=== PATIENT | female | born 1950 | race Caucasian/White ===

== ENCOUNTER 2017-06-28 14:00 | Inpatient (IN) | payer MEDICARE, SELFPAY | END 2017-06-29 17:22 | disposition home or self-care (01) | DRG 641 | PROVIDERS: Admitting Provider Family Medicine; Emergency Provider Emergency Medicine; PCP Family Medicine; Visit Provider Family Medicine | DX: E87.6 Hypokalemia (principal); N39.0 Urinary tract infection, site not specified; Z87.891 Personal history of nicotine dependence; G35 Multiple sclerosis; E03.9 Hypothyroidism, unspecified; M81.0 Age-related osteoporosis without current pathological fracture; R60.9 Edema, unspecified; R32 Unspecified urinary incontinence; W18.30XA Fall on same level, unspecified, initial encounter | CPT/HCPCS: 36000; 36415; 71010; 71045; 80048; 80053; 81001; 81003; 83605; 83690; 83735; 85025; 85610; 85730; 87040; 87077; 87086; 87186; 93005; 93010; 96361; 96365; 96366; 96368; 97161; 99058; 99285; G0378; J1650; J3480 ==

== ENCOUNTER → 2018-07-05 13:46 | Outpatient (CLI) | payer MEDICARE, SELFPAY ==
[2018-07-05 14:52] LABS: Blood Urea Nitrogen 24 mg/dL (7-17); Calcium 8.9 mg/dL (8.4-10.2); Carbon Dioxide 31 mmol/L (22-32); Chloride 100 mmol/L (98-107); Estimated Glomerular Filt Rate > 60.0 mL/min (>60); Glucose 102 mg/dL (80-110); HEMOLYSIS < 15 (0-50); Potassium 3.8 mmol/L (3.4-5.1); Sodium 139 mmol/L (137-145)
[2018-07-05 15:16] LABS: Vitamin D 25 Hydroxy (D3) 53.7 ng/mL (30.0-100.0)
[2018-07-05 15:28] LABS: Thyroid Stimulating Hormone 7.41 uIU/mL (0.47-4.68)
== END ==
PROVIDERS: PCP Family Medicine; Visit Provider Family Medicine
DX: E03.9 Hypothyroidism, unspecified (principal); E87.6 Hypokalemia; G35 Multiple sclerosis; M81.0 Age-related osteoporosis without current pathological fracture
CPT/HCPCS: 36415; 80048; 82306; 84443

== ENCOUNTER → 2018-09-27 10:50 | Outpatient (CLI) | payer MEDICARE, SELFPAY ==
[2018-09-27 12:31] LABS: Alanine Aminotransferase 17 IU/L (9-52); Albumin 3.5 g/dL (3.5-5.0); Albumin Globulin Ratio 1.3 (1.0-2.8); Alkaline Phosphatase 77 U/L (38-126); Aspartate Aminotransferase 22 IU/L (14-36); BUN Creatinine Ratio 21.4 (6-22); Bilirubin Total 0.3 mg/dL (0.2-1.3); Blood Urea Nitrogen 15 mg/dL (7-17); Calcium 8.8 mg/dL (8.4-10.2); Carbon Dioxide 33 mmol/L (22-32); Chloride 102 mmol/L (98-107); Cholesterol 189 mg/dL (140-199); Estimated Glomerular Filt Rate > 60.0 mL/min (>60); Globulin 2.6 g/dL (1.7-4.1); Glucose 83 mg/dL (80-110); HDL Cholesterol 64 mg/dL (40-60); HEMOLYSIS < 15 (0-50); LDL Cholesterol Calculated 114 mg/dL (<100); Potassium 3.5 mmol/L (3.4-5.1); Sodium 141 mmol/L (137-145); Total Protein 6.1 g/dL (6.3-8.2); Triglycerides 57 mg/dL (35-150)
[2018-09-27 12:57] LABS: TSH w/ Reflex to FT4 2.06 uIU/mL (0.47-4.68)
== END ==
PROVIDERS: Family Medicine; PCP Family Medicine; Visit Provider Family Medicine
DX: E03.9 Hypothyroidism, unspecified (principal); Z85.820 Personal history of malignant melanoma of skin; E78.00 Pure hypercholesterolemia, unspecified
CPT/HCPCS: 80053; 80061; 84443

== ENCOUNTER → 2019-01-21 13:26 | Outpatient (CLI) | payer MEDICARE, SELFPAY ==
--- NOTE | 2019-01-21 13:29 | DI.RAD.S_ITS ---
PROCEDURE: XR MANDIBLE MIN 4V INDICATIONS: jaw pain, on bisphosphonate TECHNIQUE: 3 views of the mandible were acquired. COMPARISON: None. FINDINGS: Bones: No fractures or dislocations. No suspicious bony lesions. Temporomandibular Multiple dental implants. Soft tissues: Visualized sinuses appear clear. No suspicious soft tissue densities. IMPRESSION: No acute osseous abnormalities. If clinical symptoms persist or clinical suspicion for pathology is high, CT is suggested for further evaluation. Dictated by: Sathish Alvarez M.D. on 01/21/2019 at 17:20 Approved by: Sathish Alvarez M.D. on 01/21/2019 at 17:25
== END ==
PROVIDERS: PCP Family Medicine; Visit Provider Family Medicine
DX: R68.84 Jaw pain (principal)
CPT/HCPCS: 70110

== ENCOUNTER → 2019-02-22 12:52 | Outpatient (CLI) | payer MEDICARE, SELFPAY ==
--- NOTE | 2019-02-22 12:53 | DI.MG.S_ITS ---
BILATERAL DIGITAL SCREENING MAMMOGRAM 3D/2D WITH CAD: 02/22/2019 CLINICAL: Routine screening. Family history of breast cancer. Comparison is made to exams dated: 01/31/2017 mammogram - [facility], 08/22/2014 mammogram, and 06/28/2012 mammogram - [facility]. There are scattered fibroglandular elements in both breasts. Current study was also evaluated with a Computer Aided Detection (CAD) system. There are benign vascular calcifications in the right breast. There also are benign post operative findings in the left breast. No significant masses, calcifications, or other findings are seen in either breast. There has been no significant interval change. IMPRESSION: There is no mammographic evidence of malignancy. A 1 year screening mammogram is recommended. This exam was interpreted at Station ID: [id number]. NOTE: For mammograms, a report in lay terms will be sent to the patient. Approximately 15% of breast malignancies will not be visualized mammographically. In the management of a palpable breast mass, a negative mammogram must not discourage biopsy of a clinically suspicious lesion. Electronically Signed By: Giovanna [email or web address]:02/22/2019 14:56:39 letter sent: Normal Exam ACR BI-RADS Category 2: Benign Finding(s) 3342F
== END ==
PROVIDERS: PCP Family Medicine; Visit Provider Family Medicine
DX: Z12.31 Encounter for screening mammogram for malignant neoplasm of breast (principal); Z80.3 Family history of malignant neoplasm of breast
CPT/HCPCS: 77063; 77067